=== PATIENT | female | born 1990 ===

== ENCOUNTER → 2020-03-02 22:20 | Outpatient (CLI) | payer OTHER ==
[2020-03-03 01:18] LABS: HEMATOCRIT 36.1 % (36.0-48.0); MCH 26.4 pg (26.0-34.0); MCHC 30.5 g/dL (31.0-37.0); MCV 86.8 fL (80.0-100.0); MEAN PLATELET VOLUME 8.8 fL (7.4-10.4); PLATELET COUNT 425 10x3/uL (130-400); RBC 4.16 10x6/uL (4.00-5.40); WBC 4.6 10x3/uL (4.8-10.8)
[2020-03-03 01:47] LABS: % SATURATION 22 % (15-55); IRON 76 ug/dl (35-150); TOTAL IRON BIND CAPACITY 333 ug/dl (260-445); UNSAT IRON BIND CAPACITY 257 ug/dl (150-375)
[2020-03-03 02:21] LABS: C-REACTIVE PROTEIN 0.5 mg/dL (0.0-0.9); THYROID STIMULATING HORMONE 0.66 uIU/mL (0.36-3.74)
[2020-03-03 02:37] LABS: ERYTHROCYTE SEDIMENTATION RATE 18 mm/hr (0-20)
[2020-03-03 10:43] LABS: EOSINOPHILS 4 % (0-7); LYMPHOCYTES 30 % (15-50); MONOCYTES 5 % (2-11); NEUTROPHILS 60 % (40-80); PLATELET ESTIMATE INCREASED; ROULEAUX OCC
[2020-03-03 10:44] LABS: ANISOCYTOSIS OCC
== END | disposition home or self-care (01) ==
LOC: D.LABREF 22:20
PROVIDERS: ATTEND Legal Medicine
DX: R70.0 Elevated erythrocyte sedimentation rate (principal); D75.89 Other specified diseases of blood and blood-forming organs